=== PATIENT | female | born 1950 | race Caucasian/White ===

== ENCOUNTER 2018-04-02 08:56 | Day surgery (SDC) | payer MEDICARE, MEDICAID ==
[2018-04-02 09:12] VITALS: BMI 34.9
[2018-04-02] MEDS ORDERED: Propofol 10 mg/ml Inj (20 ML) ONE ×3 (11:16→11:44)
--- NOTE | 2018-04-02 11:16 | CP.SDSHP ---
Same Day Surgery H & P - History Proposed Procedure: colonoscopy Pre-Op Diagnosis: screening - Previous Medical/Surgical History Cardiac: Hypertension Endocrine/Metabolic: Diabetes, Obesity - Allergies Allergies: Allergies No Known Allergies Allergy (Verified 02/01/16 08:09) - Physical Exam General Appearance: NAD Vital Signs: Vital Signs 04/02/18 04/02/18 09:24 10:47 Temperature 97 F L 97 F L Pulse Rate 60 60 Respiratory 19 19 Rate Blood Pressure 98/78 L 98/78 L O2 Sat by Pulse 100 100 Oximetry Mental Status: Alert & Oriented x3 Neuro: WNL Heart: WNL Lungs: WNL GI: WNL - {Optional Preform as Required} Abdomen: WNL - Impression Pt. Evaluated Today:Candidate for Anesthesia & Procedure: Yes - Date & Time Date: 04/02/18 Time: 11:15 Short Stay Discharge - Short Stay Discharge Admitting Diagnosis/Reason for Visit: ENCOUNTER FOR SCREENING FOR MALIGNANT NEOPLASM OF Disposition: HOME/ ROUTINE
[2018-04-02 12:09] VITALS: TEMP 96.8
[2018-04-02 12:13] VITALS: O2SAT 98
[2018-04-02 12:48] VITALS: BP 124/57; RESP 19
[2018-04-02 12:54] VITALS: PULSE 90
== END 2018-04-02 12:53 | disposition home or self-care (01) ==
LOC: C.ENDO 08:56
PROVIDERS: ATTEND Internal Medicine Gastroenterology
DX: Z12.11 Encounter for screening for malignant neoplasm of colon (principal); K63.5 Polyp of colon; I10 Essential (primary) hypertension; E11.9 Type 2 diabetes mellitus without complications; E66.9 Obesity, unspecified; K64.8 Other hemorrhoids
CPT/HCPCS: 45380; 82948; 88305; J2001; J2704